=== PATIENT | female | born 1970 | race Two or more races ===

== ENCOUNTER 2017-04-20 10:19 | Emergency (ER) | payer SELFPAY, OTHER ==
[2017-04-20 10:36] LABS: URINE HCG POC HCG NEGATIVE (Negative)
[2017-04-20 10:48] LABS: ADD MAN DIFF? NO
[2017-04-20 10:53] LABS: BASO % 0 % (0-3); EOS # 0.1 x10^3/uL (0.0-0.7); EOS % 1 % (0-3); HEMATOCRIT 41.9 % (36.0-47.0); HEMOGLOBIN 13.8 g/dL (12.0-15.5); LYMPH # 2.9 x10^3/uL (1.0-4.8); LYMPH % 34 % (24-48); MEAN CORPUSCULAR HEMOGLOBIN 27 pg (25-35); MEAN CORPUSCULAR HGB CONC 33 g/dL (31-37); MEAN CORPUSCULAR VOLUME 83 fL (79-100); MONO # 0.4 x10^3/uL (0.0-1.1); MONO % 5 % (0-9); NEUT # 5.2 x10^3uL (1.8-7.7); NEUT % 61 % (31-73); PLATELET COUNT 384 x10^3/uL (140-400); RED BLOOD COUNT 5.07 x10^6/uL (3.50-5.40); RED CELL DISTRIBUTION WIDTH 14.1 % (11.5-14.5); WHITE BLOOD COUNT 8.6 x10^3/uL (4.0-11.0)
[2017-04-20 10:58] LABS: BACTERIA,URINE FEW /HPF (0-FEW); BILIRUBIN,URINE NEGATIVE (NEG); CLARITY,URINE CLEAR; COLOR,URINE YELLOW; GLUCOSE,URINE NEGATIVE (NEG); NITRITE,URINE NEGATIVE (NEG); PROTEIN,URINE NEGATIVE (NEG-TRACE); RBC,URINE 0 /HPF (0-2); UROBILINOGEN,URINE 0.2 mg/dL (0.2 mg/dL); WBC,URINE OCC /HPF (0-4)
[2017-04-20 10:59] LABS: SQUAMOUS EPITHELIAL CELL,UR MOD /LPF
[2017-04-20 11:02] LABS: ANION GAP 10 (6-14); BLOOD UREA NITROGEN 9 mg/dL (7-20); BUN/CREATININE RATIO 18 (6-20); CALCIUM 8.4 mg/dL (8.5-10.1); CARBON DIOXIDE 27 mmol/L (21-32); CHLORIDE 103 mmol/L (98-107); CREATININE 0.5 mg/dL (0.6-1.0); GFR 133.4; GLUCOSE 91 mg/dL (70-99); POTASSIUM 3.6 mmol/L (3.5-5.1); SODIUM 140 mmol/L (136-145)
[2017-04-20 11:09] LABS: ALBUMIN 3.5 g/dL (3.4-5.0); ALBUMIN/GLOBULIN RATIO 0.9 (1.0-1.7); ALK PHOS 98 U/L (46-116); ALT (SGPT) 45 U/L (14-59); AST (SGOT) 22 U/L (15-37); TOTAL BILIRUBIN 0.7 mg/dL (0.2-1.0); TOTAL PROTEIN 7.6 g/dL (6.4-8.2)
== END 2017-04-20 13:01 | disposition home or self-care (01) ==
LOC: ER 10:19
DX: R10.30 Lower abdominal pain, unspecified (principal); R19.7 Diarrhea, unspecified; I10 Essential (primary) hypertension; Z90.49 Acquired absence of other specified parts of digestive tract; Z98.51 Tubal ligation status; Z87.442 Personal history of urinary calculi
CPT/HCPCS: 36415; 74022; 80053; 81001; 81025; 85025; 99285

== ENCOUNTER 2018-03-09 14:55 | Emergency (ER) | payer SELFPAY ==
[~2018-03-09] VITALS: Ht 165.1 cm; Wt 95.8 kg
[~2018-03-09 14:55] MED LIST: AMLO5TAB4 PO; CYCL10TA2 PO; DICY10CA53 PO; TRAM-48 PO
--- NOTE | 2018-03-09 15:27 | PHYS DOC ---
Past Medical History Past Medical History: Hypertension, Kidney Stone Past Surgical History: Cholecystectomy, Tonsillectomy, Tubal ligation, Other Additional Past Surgical Histo: "KIDNEY STONE SX" Alcohol Use: Occasionally Drug Use: None Adult General Chief Complaint Chief Complaint: ABDOMINAL PAIN HPI HPI Patient is a 47 year old Female who presents with 3 days ago with right upper abdominal sided right side pain that wraps around to her right flank. She states that she has had her gallbladder taken out in 2000. States she feels like she is in labor the pain is sharp with contractions and rates her pain 8 out of 10. States she has not taken any pain medicine. She states she has nausea and some diarrhea this morning. Patient states her temperature was 102 last night. Patient denies any dysuria. Patient states she has not had a period for 3 months but denies any vaginal discharge, back pain or concerns for sexually transmitted diseases. Review of Systems Review of Systems Constitutional: fever or chills [] Eyes: Denies change in visual acuity, redness, or eye pain [] HENT: Denies nasal congestion or sore throat [] Respiratory: Denies cough or shortness of breath [] Cardiovascular: No additional information not addressed in HPI [] GI: Right sided abdominal pain, nausea, denies vomiting, bloody stools or diarrhea [] : Denies dysuria or hematuria [] Musculoskeletal: Denies back pain or joint pain [] Integument: Denies rash or skin lesions [] Neurologic: Denies headache, focal weakness or sensory changes [] All other systems were reviewed and found to be within normal limits, except as documented in this note. Current Medications Current Medications Current Medications Medications (Trade) Dose Ordered Sig/[facility] Start Time Stop Time Status Last Admin Dose Admin Fentanyl Citrate (Fentanyl 2ml Vial) 50 mcg 1X ONCE 03/09/18 15:30 03/09/18 15:31 DC Ketorolac Tromethamine (Toradol 30mg Vial) 30 mg 1X ONCE 03/09/18 15:30 03/09/18 15:31 DC 03/09/18 16:01 30 MG Ondansetron HCl (Zofran) 4 mg 1X ONCE 03/09/18 15:30 03/09/18 15:31 DC 03/09/18 15:35 4 MG Sodium Chloride 1,000 ml @ 1,000 mls/hr 1X ONCE 03/09/18 15:30 03/09/18 16:29 DC 03/09/18 15:35 1,000 MLS/HR Allergies Allergies Allergies Coded Allergies Type Severity Reaction Last Updated Verified No Known Drug Allergies 02/05/16 No Physical Exam Physical Exam Constitutional: Well developed, well nourished, no acute distress, non-toxic appearance. [] HENT: Normocephalic, atraumatic, bilateral external ears normal, oropharynx moist, no oral exudates, nose normal. [] Eyes: PERRLA, EOMI, conjunctiva normal, no discharge. [] Neck: Normal range of motion, no tenderness, supple, no stridor. [] Cardiovascular:Heart rate regular rhythm, no murmur [] Lungs & Thorax: Bilateral breath sounds clear to auscultation [] Abdomen: Bowel sounds normal, soft, right upper, mid, lower tenderness, no masses, no pulsatile masses. [] Skin: Warm, dry, no erythema, no rash. [] Back: Right tenderness, right CVA tenderness. [] Extremities: No tenderness, no cyanosis, no clubbing, ROM intact, no edema. [] Neurologic: Alert and oriented X 3, normal motor function, normal sensory function, no focal deficits noted. [] Psychologic: Affect normal, judgement normal, mood normal. [] Current Patient Data Vital Signs Vital Signs Date Time Temp Pulse Resp B/P (MAP) Pulse Ox O2 Delivery O2 Flow Rate FiO2 03/09/18 16:15 78 16 161/72 (101) 99 Room Air 03/09/18 15:08 98.1 98.1 Lab Values Laboratory Tests Test 03/09/18 15:08 03/09/18 15:24 Urine Collection Type Unknown Urine Color Yellow Urine Clarity Clear Urine pH 6.0 Urine Specific [employer] 1.020 Urine Protein 30 mg/dL (NEG-TRACE) Urine Glucose (UA) Negative mg/dL (NEG) Urine Ketones (Stick) Negative mg/dL (NEG) Urine Blood Large (NEG) Urine Nitrite Negative (NEG) Urine Bilirubin Negative (NEG) Urine Urobilinogen Dipstick 0.2 mg/dL (0.2 mg/dL) Urine Leukocyte Esterase Negative (NEG) Urine RBC 3-5 /HPF (0-2) Urine WBC 1-4 /HPF (0-4) Urine Squamous Epithelial Cells Many /LPF Urine Bacteria Moderate /HPF (0-FEW) Urine Mucus Mod /LPF Urine Test Negative (NEG) White Blood Count 8.8 x10^3/uL (4.0-11.0) Red Blood Count 4.79 x10^6/uL (3.50-5.40) Hemoglobin 13.3 g/dL (12.0-15.5) Hematocrit 39.7 % (36.0-47.0) Mean Corpuscular Volume 83 fL (79-100) Mean Corpuscular Hemoglobin 28 pg (25-35) Mean Corpuscular Hemoglobin Concent 34 g/dL (31-37) Red Cell Distribution Width 14.3 % (11.5-14.5) Platelet Count 328 x10^3/uL (140-400) Neutrophils (%) (Auto) 62 % (31-73) Lymphocytes (%) (Auto) 32 % (24-48) Monocytes (%) (Auto) 6 % (0-9) Eosinophils (%) (Auto) 0 % (0-3) Basophils (%) (Auto) 0 % (0-3) Neutrophils # (Auto) 5.5 x10^3uL (1.8-7.7) Lymphocytes # (Auto) 2.8 x10^3/uL (1.0-4.8) Monocytes # (Auto) 0.5 x10^3/uL (0.0-1.1) Eosinophils # (Auto) 0.0 x10^3/uL (0.0-0.7) Basophils # (Auto) 0.0 x10^3/uL (0.0-0.2) Sodium Level 140 mmol/L (136-145) Potassium Level 3.9 mmol/L (3.5-5.1) Chloride Level 103 mmol/L (98-107) Carbon Dioxide Level 29 mmol/L (21-32) Anion Gap 8 (6-14) Blood Urea Nitrogen 12 mg/dL (7-20) Creatinine 0.6 mg/dL (0.6-1.0) Estimated GFR (Cockcroft-Gault) 107.6 BUN/Creatinine Ratio 20 (6-20) Glucose Level 103 mg/dL (70-99) H Calcium Level 8.8 mg/dL (8.5-10.1) Total Bilirubin 0.6 mg/dL (0.2-1.0) Aspartate Amino Transferase (AST) 16 U/L (15-37) Alanine Aminotransferase (ALT) 32 U/L (14-59) Alkaline Phosphatase 87 U/L (46-116) Total Protein 7.4 g/dL (6.4-8.2) Albumin 3.3 g/dL (3.4-5.0) L Albumin/Globulin Ratio 0.8 (1.0-1.7) L Lipase 120 U/L (73-393) Laboratory Tests 03/09/18 15:24 Laboratory Tests 03/09/18 15:24 EKG EKG [] Radiology/Procedures Radiology/Procedures The abdomen pelvis[] Impressions: IMAGING REPORT Signed PATIENT: TIMOTHY ENRIQUE ACCOUNT: [id number] : 1970 LOCATION: ER AGE: 47 SEX: F EXAM STATUS: REG ER ORD. PHYSICIAN: KONG HUNTER APRN REASON: RIGHT SIDED AND RIGHT FLANK PAIN PROCEDURE: CT ABDOMEN PELVIS WO CONTRAST CT of the abdomen and pelvis without contrast, 03/09/2018: HISTORY: Right flank pain, fever Noncontrast scans were obtained utilizing the renal stone protocol. No intrarenal calculi are identified. There is a 2.9 cm mass arising from the posterior aspect of the right kidney. It demonstrates an internal CT number of 22 Hounsfield units. This could be a complicated cyst or solid mass. The renal collecting systems and ureters are not dilated. No ureteral calculus is evident. No bladder abnormality is detected. The liver is of lower than normal density and diffuse pattern compatible with fatty change. The gallbladder is surgically absent. No pancreatic abnormality is seen. The spleen is unremarkable. The abdominal aorta shows no abnormality. No abdominal or pelvic adenopathy is seen. The uterus is mildly enlarged and deviated to the right of midline. The bowel loops are not dilated. The appendix is visualized and shows no abnormality. No free air or free fluid is evident in the abdomen or pelvis. A tiny fat-containing umbilical hernia is noted. IMPRESSION: 1. No urinary tract calculi are evident. 2. Small right renal mass was which is of slightly higher density than a simple cyst. This may be a complicated cyst or solid mass. Nonemergent renal ultrasound is suggested for further evaluation. 3. Hepatic steatosis. 4. No acute abdominal or pelvic abnormality is detected. PQRS Compliance Statement: One or more of the following individualized dose reduction techniques were utilized for this examination: 1. Automated exposure control 2. Adjustment of the mA and/or kV according to patient size 3. Use of iterative reconstruction technique Electronically signed by: Jf Castillo MD (03/09/2018 4:39 PM) [facility] DICTATED and SIGNED BY: JF CASTILLO MD DATE: 03/09/18 4389 Course & Med Decision Making Course & Med Decision Making Patient is a 47 year old Female who presents with 3 days ago with right upper abdominal sided right side pain that wraps around to her right flank. She states that she has had her gallbladder taken out in 2000. States she feels like she is in labor the pain is sharp with contractions and rates her pain 8 out of 10. States she has not taken any pain medicine. She states she has nausea and some diarrhea this morning. Patient states her temperature was 102 last night. Patient denies any dysuria. Patient states she has not had a period for 3 months but denies any vaginal discharge, back pain or concerns for sexually transmitted diseases. Alert and oriented. Skin is pink warm and dry. Patient states she has not vomited. She denies chest pain or shortness of air or dizziness. Denies any blood in her urine her having urinary symptoms. Patient has tenderness to her right upper, mid, right lower and right flank pain. She does have CVA tenderness. Patient has no extremity edema. Neurologically intact. Lungs are clear to auscultation in all lobes and heart rate is regular without murmur patient states she has a history of kidney stones , cholecystectomy, hypertension. Patient states the only medicine she takes lisinopril. Blood work is unremarkable. Urine shows large amount of blood. Afebrile. CT abdomen pelvis shows 1. No urinary tract calculi are evident. 2. Small right renal mass was which is of slightly higher density than a simple cyst. This may be a complicated cyst or solid mass. Nonemergent renal ultrasound is suggested for further evaluation. 3. Hepatic steatosis. 4. No acute abdominal or pelvic abnormality is detected. Patient treated for kidney stones and referred to urology for both follow-up of the renal cysts and for kidney stones. She will be given pain medications and a strainer. Dragon Disclaimer Dragon Disclaimer This electronic medical record was generated, in whole or in part, using a voice recognition dictation system. Departure Departure Impression: Primary Impression: Kidney stone Disposition: 01 HOME, SELF-CARE Condition: STABLE Referrals: NO PCP (PCP) STEFFI PATTEN MD Patient Instructions: Kidney Stones Additional Instructions: Call urology tomorrow to make a follow up appointment. Take medications as prescribed. Scripts Cephalexin (KEFLEX) 500 Mg Capsule 1 CAP PO BID, #14 CAP Prov: KONG HUNTER FIELD TEST ENGINEER 03/09/18 Tamsulosin Hcl (FLOMAX) 0.4 Mg Cap.er.24h 1 CAP PO DAILY, #30 CAP 11 Refills Prov: KONG HUNTER FIELD TEST ENGINEER 03/09/18 Ibuprofen (IBUPROFEN) 600 Mg Tablet 600 MG PO PRN Q6HRS PRN for INFLAMMATION, #24 TAB Prov: KONG HUNTER FIELD TEST ENGINEER 03/09/18 Hydrocodone/Apap 5-325 (NORCO 5-325 TABLET) 1 Each Tablet 1 TAB PO PRN Q6HRS PRN for PAIN, #15 TAB 0 Refills Prov: KONG HUNTER FIELD TEST ENGINEER 03/09/18 KONG HUNTER FIELD TEST ENGINEER Mar 09, 2018 15:27
[2018-03-09] MEDS ORDERED: ONDANSETRON PF 4 MG/2 ML VIAL. IV ONE (15:30)
[2018-03-09] MEDS ORDERED: IV NORMAL SALINE 1000ML BAG 1,000 ML IV ONE (15:30)
[2018-03-09] MEDS ORDERED: KETOROLAC 30 MG/ML VIAL. IV ONE (15:30)
[2018-03-09] MEDS ORDERED: fentaNYL PF VIAL 100 MCG/2 ML VIAL IV ONE (15:30)
[2018-03-09 15:44] LABS: BASO % 0 % (0-3); EOS % 0 % (0-3); HEMATOCRIT 39.7 % (36.0-47.0); HEMOGLOBIN 13.3 g/dL (12.0-15.5); LYMPH # 2.8 x10^3/uL (1.0-4.8); LYMPH % 32 % (24-48); MEAN CORPUSCULAR HEMOGLOBIN 28 pg (25-35); MEAN CORPUSCULAR HGB CONC 34 g/dL (31-37); MEAN CORPUSCULAR VOLUME 83 fL (79-100); MONO # 0.5 x10^3/uL (0.0-1.1); MONO % 6 % (0-9); NEUT # 5.5 x10^3uL (1.8-7.7); NEUT % 62 % (31-73); PLATELET COUNT 328 x10^3/uL (140-400); RED BLOOD COUNT 4.79 x10^6/uL (3.50-5.40); RED CELL DISTRIBUTION WIDTH 14.3 % (11.5-14.5); WHITE BLOOD COUNT 8.8 x10^3/uL (4.0-11.0)
[2018-03-09 15:45] LABS: BILIRUBIN,URINE NEGATIVE (NEG); CLARITY,URINE CLEAR; COLOR,URINE YELLOW; NITRITE,URINE NEGATIVE (NEG); PROTEIN,URINE 30 mg/dL (NEG-TRACE); UROBILINOGEN,URINE 0.2 mg/dL (0.2 mg/dL)
[2018-03-09 15:57] LABS: CALCIUM 8.8 mg/dL (8.5-10.1); CREATININE 0.6 mg/dL (0.6-1.0); GFR 107.6; POTASSIUM 3.9 mmol/L (3.5-5.1)
[2018-03-09 16:00] LABS: BACTERIA,URINE MODERATE /HPF (0-FEW); SQUAMOUS EPITHELIAL CELL,UR MANY /LPF
[2018-03-09 16:05] LABS: U PREG PATIENT NEGATIVE (NEG)
[2018-03-09 16:06] LABS: ALBUMIN 3.3 g/dL (3.4-5.0); ALBUMIN/GLOBULIN RATIO 0.8 (1.0-1.7); TOTAL BILIRUBIN 0.6 mg/dL (0.2-1.0); TOTAL PROTEIN 7.4 g/dL (6.4-8.2)
--- NOTE | 2018-03-09 16:43 | RAD ---
CT of the abdomen and pelvis without contrast, 03/09/2018: HISTORY: Right flank pain, fever Noncontrast scans were obtained utilizing the renal stone protocol. No intrarenal calculi are identified. There is a 2.9 cm mass arising from the posterior aspect of the right kidney. It demonstrates an internal CT number of 22 Hounsfield units. This could be a complicated cyst or solid mass. The renal collecting systems and ureters are not dilated. No ureteral calculus is evident. No bladder abnormality is detected. The liver is of lower than normal density and diffuse pattern compatible with fatty change. The gallbladder is surgically absent. No pancreatic abnormality is seen. The spleen is unremarkable. The abdominal aorta shows no abnormality. No abdominal or pelvic adenopathy is seen. The uterus is mildly enlarged and deviated to the right of midline. The bowel loops are not dilated. The appendix is visualized and shows no abnormality. No free air or free fluid is evident in the abdomen or pelvis. A tiny fat-containing umbilical hernia is noted. IMPRESSION: 1. No urinary tract calculi are evident. 2. Small right renal mass was which is of slightly higher density than a simple cyst. This may be a complicated cyst or solid mass. Nonemergent renal ultrasound is suggested for further evaluation. 3. Hepatic steatosis. 4. No acute abdominal or pelvic abnormality is detected. PQRS Compliance Statement: One or more of the following individualized dose reduction techniques were utilized for this examination: 1. Automated exposure control 2. Adjustment of the mA and/or kV according to patient size 3. Use of iterative reconstruction technique Electronically signed by: Jf Castillo MD (03/09/2018 4:39 PM) [facility]
[2018-03-09] MEDS ORDERED: HYDR-3164 PO (17:04)
[2018-03-09] MEDS ORDERED: TAMS0.4C97 PO (17:04)
[2018-03-09] MEDS ORDERED: IBUP-1007 PO (17:04)
[2018-03-09] MEDS ORDERED: CEPH-264 PO (17:04)
[2018-03-09 17:16] VITALS: BP 148/82
== END 2018-03-09 17:17 | disposition home or self-care (01) ==
LOC: ER 14:55
DX: N20.0 Calculus of kidney (principal); R11.0 Nausea; R19.7 Diarrhea, unspecified; I10 Essential (primary) hypertension; K76.0 Fatty (change of) liver, not elsewhere classified; K42.9 Umbilical hernia without obstruction or gangrene; Z90.49 Acquired absence of other specified parts of digestive tract; Z90.89 Acquired absence of other organs; Z98.51 Tubal ligation status
CPT/HCPCS: 36415; 74176; 80053; 81001; 81025; 83690; 85025; 87086; 96361; 96374; 96375; 99284; J1885; J2405; J7030